=== PATIENT | female | born 1995 | race African-American/Black ===

== ENCOUNTER 2021-01-09 18:55 | Emergency (ER) | payer MEDICAID ==
[~2021-01-09] VITALS: Ht 175.3 cm; Wt 88.0 kg
[2021-01-09 19:03] VITALS: BP 134/79
[2021-01-09] MEDS ORDERED: BLOOD GLUCOSE MONITORING 1 DEV DEV FS ONE (19:30)
--- NOTE | 2021-01-09 19:40 | NUR ---
ASSUMED CARE OF PATIENT AT THIS TIME. PATIENT AMBULATED TO ROOM
--- NOTE | 2021-01-09 20:03 | NUR ---
AMBULATED TO BED, REPORTS ABDOMINAL PAIN TO LOWER AREA ONSET OF A WHILE. NO N/V/D OR ANY OTHER COMPLAINTS. IN ER BED 4
[2021-01-09] MEDS ORDERED: MIRABULK PO (20:48)
[2021-01-09] MEDS ORDERED: ONDA-24 PO (20:48)
--- NOTE | 2021-01-09 20:55 | NUR ---
PATIENT CLEARED FOR DISCHARGE AT THIS TIME ER MD AT BEDSIDE AND NO FURTHER QUESTIONS FOLLOWING DISCHARGE TEACHING
[2021-01-09 20:57] VITALS: BP 127/59
== END 2021-01-09 20:55 | disposition home or self-care (01) ==
LOC: MED 18:55
DX: K59.00 Constipation, unspecified (principal); Z79.899 Other long term (current) drug therapy
CPT/HCPCS: 74021; 81025; 99283